=== PATIENT | male | born 1980 | race Two or more races ===

== ENCOUNTER 2020-10-23 04:19 | Emergency (ER) | payer OTHER ==
[~2020-10-23] VITALS: Ht 172.7 cm; Wt 93.0 kg
[2020-10-23] MEDS ORDERED: ZOLOFT25 MG (04:47)
[2020-10-23] MEDS ORDERED: VISTARIL25 MG PO (05:01)
== END 2020-10-23 05:09 | disposition home or self-care (01) ==
LOC: ER 04:19
DX: R06.02 Shortness of breath (principal); F41.8 Other specified anxiety disorders

== ENCOUNTER 2021-02-26 14:06 | Emergency (ER) | payer OTHER ==
[~2021-02-26] VITALS: Ht 172.7 cm; Wt 97.5 kg
[~2021-02-26 14:06] MED LIST: VISTARIL25 MG PO; ZOLOFT25 MG
== END 2021-02-26 16:55 | disposition home or self-care (01) ==
LOC: ER 14:06
DX: S05.02XA Injury of conjunctiva and corneal abrasion without foreign body, left eye, initial encounter (principal); H57.12 Ocular pain, left eye; W45.8XXA Other foreign body or object entering through skin, initial encounter; Y93.89 Activity, other specified; Y92.89 Other specified places as the place of occurrence of the external cause; Y99.8 Other external cause status

== ENCOUNTER 2023-02-19 02:06 | Emergency (ER) | payer OTHER ==
[~2023-02-19] VITALS: Ht 172.7 cm; Wt 100.2 kg
[2023-02-19] MEDS ORDERED: ZESTRIL5 MG PO (02:21)
== END 2023-02-19 03:56 | disposition home or self-care (01) ==
LOC: ER 02:06
DX: J06.9 Acute upper respiratory infection, unspecified (principal); Z88.6 Allergy status to analgesic agent